=== PATIENT | female | born 1995 | race Two or more races ===

== ENCOUNTER 2019-03-11 13:55 | Emergency (ER) | payer SELFPAY ==
[2019-03-11 14:20] VITALS: BP 105/65; PULSE 105; TEMP 98.5; BMI 27.4
[2019-03-11] MEDS ORDERED: HYDROCORTISONE 1% TOPICAL CREAM 30 GM TUBE TP ONE (15:18)
[2019-03-11] MEDS ORDERED: diphenhydrAMINE HCL 25 MG CAPSULE (FP) PO ONE ×2 (15:18→15:27)
[2019-03-11] MEDS ORDERED: diazePAM 5 MG TABLET PO ONE (15:18)
[2019-03-11] MEDS ORDERED: diazePAM 5 MG TABLET ONE (15:27)
--- NOTE | 2019-03-11 15:33 | PDOC ---
History of Present Illness - General Chief Complaint: Rash Stated Complaint: RASH Time Seen by Provider: 03/11/19 14:41 History Source: Patient Exam Limitations: No Limitations - History of Present Illness Initial Comments: 03/11/19 15:27 HISTORY OF PRESENT ILLNESS: 23-year-old woman denies medical history presents emergency department for evaluation of 3 weeks of rash and lower back pain for one year. Patient reports she recently moved here from [place] and does not have a primary care doctor. [place] she was undergoing treatment for her back pain with physical therapist and is requesting continuation of care here. Patient also noticed a rash to her trunk which started as a Singler oval patch to the left flank followed by similar-appearing smaller patches around her body. She reports the rash is itchy she's been taking Benadryl with relief of itching. No recent travel or sick contacts. PAST MEDICAL HISTORY: Denies past medical history SURGICAL HISTORY: Denies ALLERGIES: No known drug allergies REVIEW OF SYSTEMS General/Constitutional: Denies fever or chills. Denies weakness, weight change. HEENT: Denies change in vision. Denies ear pain or discharge. Denies sore throat. Cardiovascular: Denies chest pain or shortness of breath. Respiratory: Denies cough, wheezing, or hemoptysis. Gastrointestinal: Denies nausea, vomiting, diarrhea or constipation. Denies rectal bleeding. Genitourinary: Denies dysuria, frequency, or change in urination. Musculoskeletal: see HPI Skin and breasts: see HPI Neurologic: Denies headache, vertigo, loss of consciousness, or loss of sensation. Psychiatric: Denies depression or anxiety. Endocrine: Denies increased thirst. Denies abnormal weight change. Hematologic/Lymphatic: Denies anemia, easy bleeding, or history of blood clots. Allergic/Immunologic: Denies hives or skin allergy. Denies latex allergy. PHYSICAL EXAM General Appearance: Well-appearing, appropriately dressed. No apparent distress , no intoxication. HEENT: EOMI, PERRLA, normal ENT inspection, normal voice, TMs normal, pharynx normal. No conjunctival pallor. No photophobia, scleral icterus. Neck: Supple. Trachea midline. No tenderness, rigidity, carotid bruit, stridor , lymphadenopathy, or thyromegaly. Respiratory/Chest: Lungs CTAB. No shortness of breath, chest tenderness, respiratory distress, accessory muscle use. No crackles, rales, rhonchi, stridor , wheezing, dullness Cardiovascular: RRR. S1, S2. No JVD, murmur, bradycardia, tachycardia. Vascular Pulses: Dorsalis-Pedis (R): 2+, Dorsalis-Pedis (L): 2+ Gastrointestinal/Abdominal: Normal bowel sounds. Abdomen soft, non-distended. No tenderness or rebound tenderness. No organomegaly, pulsatile mass, guarding, hernia, hepatomegaly, splenomegaly. Lymphatic: No adenopathy, tenderness. Musculoskeletal/Extremities: Normal inspection. FROM of all extremities, normal capillary refill. Pelvis Stable. No CVA tenderness. No tenderness to extremities, pedal edema, swelling, erythema or deformity. Integumentary: Raised patchy scaly rash present to chest, back and abdomen. Rash started with a single oval patch in the left flank is currently still presents and is larger than the other lesions. Dizziness the large patches consistent with a herald patch. Neurologic: parts sales advisor II-XII intact. Fully oriented, alert. Appropriate mood/affect. Motor strength 5/5. No appreciable EOM palsy, facial droop or sensory deficit. 03/11/19 15:52 Past History - Past Medical History Allergies/Adverse Reactions: Allergies Allergy/AdvReac Type Severity Reaction Status Date / Time ibuprofen Allergy Verified 03/11/19 14:21 tramadol Allergy Verified 03/11/19 14:21 Home Medications: Ambulatory Orders NK [No Known Home Medication] 03/11/19 COPD: No Other medical history: ITP - Suicide/Smoking/Psychosocial Hx Smoking History: Never smoked Have you smoked in the past 12 months: No Information on smoking cessation initiated: No Hx Alcohol Use: No Drug/Substance Use Hx: No *Physical Exam - Vital Signs Last Vital Signs Temp Pulse Resp BP Pulse Ox 98.5 F 105 H 20 105/65 100 03/11/19 14:19 03/11/19 14:19 03/11/19 14:19 03/11/19 14:19 03/11/19 14:19 Medical Decision Making - Medical Decision Making 03/11/19 15:27 A/P: 43-year-old woman with pityriasis rosacea and lower back pain Rash present to trunk for the past 3 weeks started with a large oval patch in the left flank which then progressed to smaller patches on the chest, upper back and lower back. Valium 5 mg now Benadryl 25 mg orally Hydrocortisone cream 2% Discharge home *DC/Admit/Observation/Transfer Diagnosis at time of Disposition: Pityriasis rosea Back pain Qualifiers: Back pain location: low back pain Chronicity: acute Back pain laterality: right Sciatica presence: without sciatica Qualified Code(s): M54.5 - Low back pain - Discharge Dispostion Disposition: HOME Condition at time of disposition: Stable Decision to Admit order: No - Referrals Referrals: Vivi Alejandra MD [Staff Physician] - Giovany Fay MD [Staff Physician] - - Patient Instructions Additional Instructions: Rest. Take Tylenol or Motrin as needed for pain. Follow manufacturers instructions for appropriate dosage. Warm moist heat applied to your back may help alleviate pain. Return to emergency department for discoloration of the foot, numbness or tingling to the foot, worsening pain, or any other concerns. Thank you very much for choosing us to provide your emergent healthcare needs. - Post Discharge Activity
== END 2019-03-11 15:35 | disposition home or self-care (01) ==
LOC: JERFT 13:55
DX: L42 Pityriasis rosea (principal); M54.5 Low back pain
CPT/HCPCS: 99281-25

== ENCOUNTER 2019-05-28 16:26 | Emergency (ER) | payer OTHER ==
[2019-05-28 16:29] VITALS: BP 109/59; PULSE 98; TEMP 98.4; BMI 27.4
[2019-05-28] MEDS ORDERED: LIDOCAINE VISCOUS 2% ORAL/TOP 20 ML UNIT-DOSE CUP ONE (16:40)
--- NOTE | 2019-05-28 16:43 | PDOC ---
History of Present Illness - General Chief Complaint: Toothache Stated Complaint: tooth problem Time Seen by Provider: 05/28/19 16:34 History Source: Patient Past History - Past Medical History Allergies/Adverse Reactions: Allergies Allergy/AdvReac Type Severity Reaction Status Date / Time ibuprofen Allergy Verified 05/28/19 16:33 tramadol Allergy Verified 05/28/19 16:33 Home Medications: Ambulatory Orders Chlorhexidine Gluconate [Peridex -] 15 ml MM BID 3 Days #90 ml 05/28/19 COPD: No - Suicide/Smoking/Psychosocial Hx Smoking History: Never smoked Have you smoked in the past 12 months: No Hx Alcohol Use: No Drug/Substance Use Hx: No *Physical Exam - Vital Signs Last Vital Signs Temp Pulse Resp BP Pulse Ox 98.4 F 98 H 18 109/59 L 100 05/28/19 16:27 05/28/19 16:27 05/28/19 16:27 05/28/19 16:27 05/28/19 16:27 - Physical Exam HEENT: positive: EOMI, Other (left upper molar extraction with stitches, no active bleeding or discharge noted). negative: Excessive drooling Neurologic: positive: post production assistant II-XII NML intact, Fully Oriented, Alert, Normal Mood/ Affect, Motor Strength 5/5 Medical Decision Making - Medical Decision Making 23y/o F s/p tooth extraction today at 7am reports pain to left facial region exam with upper molar extraction with sutures no evidence of facial droop or ear infection no abscess 05/28/19 16:56 pt took 2 extra strength Tylenol 1hr COAL DIGGER *DC/Admit/Observation/Transfer Diagnosis at time of Disposition: Tooth ache - Discharge Dispostion Disposition: HOME Condition at time of disposition: Stable Decision to Admit order: No - Prescriptions Prescriptions: Chlorhexidine Gluconate [Peridex -] 15 ml MM BID 3 Days #90 ml - Referrals - Patient Instructions Printed Discharge Instructions: DI for Dental Pain Additional Instructions: Take Tylenol for pain apply the viscous lidocaine gel given to you every 4hrs prn pain, do not swallow follow up Dentist Return to the ER If worsening symptoms occurs - Post Discharge Activity
== END 2019-05-28 17:11 | disposition home or self-care (01) ==
LOC: JERFT 16:26
DX: K08.89 Other specified disorders of teeth and supporting structures (principal)
CPT/HCPCS: 99282-25

== ENCOUNTER 2019-07-29 23:27 | Emergency (ER) | payer OTHER ==
[2019-07-29 23:53] VITALS: BMI 30.9
[2019-07-30 02:50] LABS: EPI CELLS 6.5 /HPF (0-5/HPF); HYALINE CASTS 4 /lpf (0-8); URINE APPEARANCE Error; URINE BACTERIA 25.4 /hpf (NEGATIVE); URINE BILIRUBIN NEGATIVE (NEGATIVE); URINE COLOR YELLOW; URINE GLUCOSE (UA) NEGATIVE (NEGATIVE); URINE KETONE NEGATIVE (NEGATIVE); URINE LEUK ESTERASE TRACE (NEGATIVE); URINE NITRITE NEGATIVE (NEGATIVE); URINE PROTEIN NEGATIVE (NEGATIVE); URINE RBC 2 /hpf (0-4); URINE WBC 4 /hpf (0-5)
[2019-07-30] MEDS ORDERED: ACETAMINOPHEN 1000 MG/100 ML VIAL (NON FORMULARY) IVPB ONE ×2 (03:18→09:59)
--- NOTE | 2019-07-30 03:22 | PDOC ---
History of Present Illness - General Chief Complaint: Pain Stated Complaint: BACK AND ABD PAIN Time Seen by Provider: 07/30/19 01:46 - History of Present Illness Initial Comments: 07/30/19 03:17 23 yo F with h/o tubal ligation who p/w diffuse lower abdominal pain. Patient reports crampy, unremitting, worsening diffuse lower abdominal pain x 1 week. No identifiable triggers or alleviators. nausea without vomiting. Denies improvement with Prilosec. Denies h/o similar presentation. Patient denies ADKINS, vision change, palpitations, cough, wheezing, orthopena, PND , leg swelling/pain, N/V, F,C, CP, SOB, urinary complaints, hematuria, vaginal discharge/bleeding/itching/burning, BPR, abdominal pain, diarrhea, constipation , lightheadedness, weakness, sensory changes. PMHx: as noted above ROS: as noted SHx: Denies Etoh, IVDA, tobacco use. Sexually active with one partner. Reports intermittent barrier/condom protection. Allergies: Motrin, Tramadol Past History - Past Medical History Allergies/Adverse Reactions: Allergies Allergy/AdvReac Type Severity Reaction Status Date / Time ibuprofen Allergy Verified 07/29/19 23:48 tramadol Allergy Verified 07/29/19 23:48 Home Medications: Ambulatory Orders Chlorhexidine Gluconate [Peridex -] 15 ml MM BID 3 Days #1 bottle 05/28/19 Chlorhexidine Gluconate [Peridex -] 15 ml MM BID 3 Days #90 ml 05/28/19 COPD: No - Suicide/Smoking/Psychosocial Hx Smoking History: Never smoked Have you smoked in the past 12 months: No Information on smoking cessation initiated: No Hx Alcohol Use: No Drug/Substance Use Hx: No Review of Systems - Review of Systems Comments:: 07/30/19 03:24 GENERAL/CONSTITUTIONAL: No fever or chills. No weakness. HEAD, EYES, EARS, NOSE AND THROAT: No change in vision. No ear pain or discharge. No sore throat. CARDIOVASCULAR: No chest pain or shortness of breath RESPIRATORY: No cough, wheezing, or hemoptysis. GASTROINTESTINAL: No nausea, vomiting, diarrhea or constipation. GENITOURINARY: + Lower abdominal pain. No dysuria, frequency, or change in urination. MUSCULOSKELETAL: No joint or muscle swelling or pain. No neck or back pain. SKIN: No rash NEUROLOGIC: No headache, vertigo, loss of consciousness, or change in strength/ sensation. ENDOCRINE: No increased thirst. No abnormal weight change HEMATOLOGIC/LYMPHATIC: No anemia, easy bleeding, or history of blood clots. ALLERGIC/IMMUNOLOGIC: No hives or skin allergy. *Physical Exam - Vital Signs Last Vital Signs Temp Pulse Resp BP Pulse Ox 98.8 F 110 H 17 123/71 100 07/29/19 23:44 07/29/19 23:44 07/29/19 23:44 07/29/19 23:44 07/29/19 23:44 - Physical Exam Comments: 07/30/19 03:25 GENERAL: Awake, alert, and fully oriented, in no acute distress HEAD: No signs of trauma, normocephalic, atraumatic EYES: PERRLA, EOMI, sclera anicteric, conjunctiva clear ENT: Hearing grossly normal, nares patent, oropharynx clear without exudates. Moist mucosa NECK: Normal ROM, supple, no lymphadenopathy, JVD, or masses LUNGS: No distress, speaks full sentences, clear to auscultation bilaterally HEART: Regular rate and rhythm, normal S1 and S2, no murmurs, rubs or gallops, peripheral pulses normal and equal bilaterally. ABDOMEN: + Diffuse lower abdominal ttp. Soft, NDS, normoactive bowel sounds. No guarding, no rebound. No masses. Neg CVA ttp. EXTREMITIES : Normal inspection, Normal range of motion, no edema. No clubbing or cyanosis. NEUROLOGICAL: Cranial nerves II through XII grossly intact. Normal speech, normal gait, no focal sensorimotor deficits SKIN: Warm, Dry, normal turgor, no rashes or lesions noted ED Treatment Course - LABORATORY CBC & Chemistry Diagram: 07/30/19 06:28 07/30/19 09:28 - ADDITIONAL ORDERS Additional order review: Laboratory Results 07/30/19 07/30/19 02:35 02:35 Urine Color Yellow Urine Appearance Error Urine pH 7.0 Ur Specific [place] 1.023 Urine Protein Negative Urine Glucose (UA) Negative Urine Ketones Negative Urine Blood Negative Urine Nitrite Negative Urine Bilirubin Negative Urine Urobilinogen 1.0 Ur Leukocyte Esterase Trace Urine WBC (Auto) 4 Urine RBC (Auto) 2 Urine Casts (Auto) 4 U Epithel Cells (Auto) 6.5 Urine Bacteria (Auto) 25.4 Urine HCG, Qual Negative Medical Decision Making - Medical Decision Making 07/30/19 03:22 23 yo F with h/o tubal ligation who p/w diffuse lower abdominal pain. HR 110, vitals wnl, AF, A&Ox3. Physical exam with diffuse lower abdominal ttp. Will consider cystitis/UTI, nephrolithaisis, colitis, diverticulitis, appendicitis, uterine or ovarian pathology. Will provide oral analgesia, reassess. Ed Course: 07/30/19 03:32 Patient refuses lab/blood draw Patient refuses pelvic exam Patient states that she wants to leave ED before complete medical evaluation 07/30/19 06:31 Patient states that she would like to stay in ED and complete med evaluation 07/30/19 06:32 UA negative CBC, CMP: pending *DC/Admit/Observation/Transfer Diagnosis at time of Disposition: Abdominal pain Qualifiers: Abdominal location: lower abdomen, unspecified Qualified Code(s): R10.30 - Lower abdominal pain, unspecified - Discharge Dispostion Disposition: AGAINST MEDICAL ADVICE Condition at time of disposition: Stable Decision to Admit order: No - Referrals Referrals: Beau Salinas MD [Staff Physician] - Jae Simon MD [Staff Physician] - - Patient Instructions Printed Discharge Instructions: DI for Abdominal Pain-Adult Additional Instructions: You are refusing further medical care and want to go home before labs return, imaging is performed, or without a pelvic exam. Please follow up with the webbing seamer pound net and the GI doctor. Please return to the ED if you have new or worsening symptoms. - Post Discharge Activity
--- NOTE | 2019-07-30 06:14 | PDOC ---
Attending Attestation - Resident Resident Name: Jean Barron - ED Attending Attestation I have performed the following: I have examined & evaluated the patient, The case was reviewed & discussed with the resident, I agree w/resident's findings & plan - HPI HPI: 07/30/19 07:21 Pt comes with bilat low abd pain as well as left sided abd pain. Pt has a hx of ovarian cysts; she moved to [place] in February and she has no MDs Pt has no flank pain. She has no nausea and no vomiting and no dysuria and she is able to eat and she denies constipation. - Physicial Exam PE: 07/30/19 07:23 Agree with resident exam. - Medical Decision Making 07/30/19 07:23 Pt may have ovarian cysts causing torsion and detorsion. CBC normal; UA normal Chem hemolyzed. Pt treated with ofirmev; morphin enad saline ordered. 07/30/19 07:24 She will be signed out to the day team for sono
[2019-07-30] MEDS ORDERED: SODIUM CHLORIDE 1,000 ML IV STA (06:32)
[2019-07-30] MEDS ORDERED: ACETAMINOPHEN INJECTION 100 ML IVPB ONE ×2 (06:33→11:20)
[2019-07-30 06:39] LABS: EOS % 3.1 % (0-4.5); HEMATOCRIT 35.9 % (32.4-45.2); HEMOGLOBIN 11.9 GM/dL (10.7-15.3); LYMPH % 50.7 % (8-40); MCH 27.1 pg (25.7-33.7); MCHC 33.2 g/dl (32.0-36.0); MEAN CELL VOLUME 81.6 fl (80-96); MEAN PLT VOLUME 7.3 fl (7.5-11.1); MONO % 8.8 % (3.8-10.2); NEUT % 36.4 % (42.8-82.8); PLATELET COUNT 315 K/MM3 (134-434); RDW 16.7 % (11.6-15.6); WHITE BLOOD COUNT 8.7 K/mm3 (4.0-10.0)
[2019-07-30] MEDS ORDERED: morphine CARPU-JECT 2 MG/1 ML DISP.SYRIN IVPUSH ONE (07:08)
[2019-07-30] MEDS ORDERED: MORPHINE SULFATE 2 MG/ML VIAL ONE (07:29)
--- NOTE | 2019-07-30 07:33 | PDOC ---
*Physical Exam - Vital Signs Last Vital Signs Temp Pulse Resp BP Pulse Ox 98.8 F 110 H 17 123/71 100 07/29/19 23:44 07/29/19 23:44 07/29/19 23:44 07/29/19 23:44 07/29/19 23:44 ED Treatment Course - LABORATORY CBC & Chemistry Diagram: 07/30/19 06:28 07/30/19 09:28 - ADDITIONAL ORDERS Additional order review: Laboratory Results 07/30/19 07/30/19 07/30/19 06:28 02:35 02:35 Sodium Cancelled Potassium Cancelled Chloride Cancelled Carbon Dioxide Cancelled Anion Gap Cancelled BUN Cancelled Creatinine Cancelled Est GFR (CKD-EPI)AfAm Cancelled Est GFR (CKD-EPI)NonAf Cancelled Random Glucose Cancelled Calcium Cancelled Total Bilirubin Cancelled AST Cancelled ALT Cancelled Alkaline Phosphatase Cancelled Total Protein Cancelled Albumin Cancelled Urine Color Yellow Urine Appearance Error Urine pH 7.0 Ur Specific [place] 1.023 Urine Protein Negative Urine Glucose (UA) Negative Urine Ketones Negative Urine Blood Negative Urine Nitrite Negative Urine Bilirubin Negative Urine Urobilinogen 1.0 Ur Leukocyte Esterase Trace Urine WBC (Auto) 4 Urine RBC (Auto) 2 Urine Casts (Auto) 4 U Epithel Cells (Auto) 6.5 Urine Bacteria (Auto) 25.4 Urine HCG, Qual Negative 07/30/19 06:28 RBC 4.40 MCV 81.6 MCHC 33.2 RDW 16.7 H MPV 7.3 L Neutrophils % 36.4 L Lymphocytes % 50.7 H Monocytes % 8.8 Eosinophils % 3.1 Basophils % 1.0 - Medications Given in the ED: ED Medications Discontinued Medications Generic Name Dose Route Start Last Admin Trade Name Gregq PRN Reason Stop Dose Admin Acetaminophen 1,000 mg 07/30/19 03:18 07/30/19 06:38 Ofirmev Injection - IVPB 07/30/19 03:19 1,000 mg ONCE ONE Administration Medical Decision Making - Medical Decision Making 07/30/19 07:[address] Barron 23 yo F with h/o tubal ligation who p/w diffuse lower abdominal pain. Initial vitals included HR 110, AF, A&Ox3. Physical exam with diffuse lower abdominal ttp. UA and CBC unremarkable -Will followup CMP and transvaginal US 07/30/19 10:23 US negative CMP unremarkable with nrml Cr will proceed to CT abd/pel with con given persistent tenderness 07/30/19 10:58 Patient refusing imaging and wants to leave AMA Discussed with patient risks of leaving AMA before workup complete and patient signed form Recommended further followup with PCP as well as GI/Ob for evaluation *DC/Admit/Observation/Transfer Diagnosis at time of Disposition: Abdominal pain Qualifiers: Abdominal location: lower abdomen, unspecified Qualified Code(s): R10.30 - Lower abdominal pain, unspecified - Discharge Dispostion Disposition: AGAINST MEDICAL ADVICE Condition at time of disposition: Stable Decision to Admit order: No - Referrals Referrals: Beau Salinas MD [Staff Physician] - Jae Simon MD [Staff Physician] - - Patient Instructions Printed Discharge Instructions: DI for Abdominal Pain-Adult Additional Instructions: You are refusing further medical care and want to go home before labs return, imaging is performed, or without a pelvic exam. Please follow up with the steam tender and the GI doctor. Please return to the ED if you have new or worsening symptoms. - Post Discharge Activity
--- NOTE | 2019-07-30 07:46 | PDOC ---
*Physical Exam - Vital Signs Last Vital Signs Temp Pulse Resp BP Pulse Ox 98.8 F 110 H 17 123/71 100 07/29/19 23:44 07/29/19 23:44 07/29/19 23:44 07/29/19 23:44 07/29/19 23:44 - Physical Exam Comments: 07/30/19 10:27 gen: aaox3, uncomfortable, laying in a position heart: +s1s2 reg lungs: cta b/l abd: soft, suprapubic ttp, RLQ ttp, R cva ttp ext: no c/c/e ED Treatment Course - LABORATORY CBC & Chemistry Diagram: 07/30/19 06:28 07/30/19 09:28 - ADDITIONAL ORDERS Additional order review: Laboratory Results 07/30/19 07/30/19 07/30/19 06:28 02:35 02:35 Sodium Cancelled Potassium Cancelled Chloride Cancelled Carbon Dioxide Cancelled Anion Gap Cancelled BUN Cancelled Creatinine Cancelled Est GFR (CKD-EPI)AfAm Cancelled Est GFR (CKD-EPI)NonAf Cancelled Random Glucose Cancelled Calcium Cancelled Total Bilirubin Cancelled AST Cancelled ALT Cancelled Alkaline Phosphatase Cancelled Total Protein Cancelled Albumin Cancelled Urine Color Yellow Urine Appearance Error Urine pH 7.0 Ur Specific [place] 1.023 Urine Protein Negative Urine Glucose (UA) Negative Urine Ketones Negative Urine Blood Negative Urine Nitrite Negative Urine Bilirubin Negative Urine Urobilinogen 1.0 Ur Leukocyte Esterase Trace Urine WBC (Auto) 4 Urine RBC (Auto) 2 Urine Casts (Auto) 4 U Epithel Cells (Auto) 6.5 Urine Bacteria (Auto) 25.4 Urine HCG, Qual Negative 07/30/19 06:28 RBC 4.40 MCV 81.6 MCHC 33.2 RDW 16.7 H MPV 7.3 L Neutrophils % 36.4 L Lymphocytes % 50.7 H Monocytes % 8.8 Eosinophils % 3.1 Basophils % 1.0 - Medications Given in the ED: ED Medications Discontinued Medications Generic Name Dose Route Start Last Admin Trade Name Freq PRN Reason Stop Dose Admin Acetaminophen 1,000 mg 07/30/19 03:18 07/30/19 06:38 Ofirmev Injection - IVPB 07/30/19 03:19 1,000 mg ONCE ONE Administration Sodium Chloride 1,000 mls @ 1,000 mls/hr 07/30/19 06:32 07/30/19 07:07 Normal Saline - IV 07/30/19 07:31 1,000 mls/hr ASDIR STA Administration Morphine Sulfate 2 mg 07/30/19 07:08 07/30/19 07:37 Morphine Injection - IVPUSH 07/30/19 07:09 2 mg ONCE ONE Administration Medical Decision Making - Medical Decision Making 07/30/19 07:46 a/p: 23yo female with lower abd pain signed out from the prior team pending tvus -pt currently in ultrasound 07/30/19 10:29 pt states still with lower abd pain ultrasound does not show acute pelvic pathology -r cva ttp and rlq pain, will send for ct [facility] for appy -will give tylenol for pain -will monitor and reassess 07/30/19 10:30 ua neg lipase is low 07/30/19 10:30 pt refused pelvic exam 07/30/19 11:[address] and refusing pelvic pt requesting to sign out ama states pain has been present since december pt signed ama paperwork resident discussed in detail signing out ama Note: The patient insists on leaving the emergency dept and is signing out against medical advice. The patient understands the risks and complications that may result from the refusal of medical care and admission which includes and permanent disability. The patient has the mental capacity of understanding the risks of refusing care and is capable of making an informed decision. The patient was instructed to return to the emergency department should she change her mind regarding medical care or should her condition worsen. The patient signed the Against Medical Advice form. *DC/Admit/Observation/Transfer Diagnosis at time of Disposition: Abdominal pain Qualifiers: Abdominal location: lower abdomen, unspecified Qualified Code(s): R10.30 - Lower abdominal pain, unspecified - Discharge Dispostion Disposition: AGAINST MEDICAL ADVICE Condition at time of disposition: Stable - Referrals Referrals: Beau Salinas MD [Staff Physician] - Jae Simon MD [Staff Physician] - - Patient Instructions Printed Discharge Instructions: DI for Abdominal Pain-Adult Additional Instructions: You are refusing further medical care and want to go home before labs return, imaging is performed, or without a pelvic exam. Please follow up with the group work program aide and the GI doctor. Please return to the ED if you have new or worsening symptoms. - Post Discharge Activity
[2019-07-30 09:31] VITALS: BP 99/67; PULSE 83; TEMP 98.4
[2019-07-30] MEDS ORDERED: SODIUM CHLORIDE 0.9% 1000 ML INFUS.BAG IV ONE (10:00)
[2019-07-30 10:20] LABS: ALBUMIN 3.9 g/dl (3.4-5.0); BILIRUBIN,TOTAL 0.7 mg/dL (0.2-1); BLOOD UREA NITROGEN 12.5 mg/dL (7-18); CREATININE 0.8 mg/dL (0.55-1.3); TOT PROT 7.4 g/dl (6.4-8.2)
== END 2019-07-30 11:22 | disposition left against medical advice (07) ==
LOC: JER 23:27
PROC: 3E0337Z Introduction of Electrolytic and Water Balance Substance into Peripheral Vein, Percutaneous Approach (ICD-10-PCS; principal; 2019-07-29)
PROC: 3E033NZ Introduction of Analgesics, Hypnotics, Sedatives into Peripheral Vein, Percutaneous Approach (ICD-10-PCS; 2019-07-29)
DX: R10.30 Lower abdominal pain, unspecified (principal); Z87.42 Personal history of other diseases of the female genital tract
CPT/HCPCS: 36415; 76830-TC; 80053; 81003; 83690; 84703; 85025; 87086; 96361; 96374; 99283-25; J0131; J7030

== ENCOUNTER 2019-09-19 11:05 | Emergency (ER) | payer OTHER ==
[2019-09-19 11:18] VITALS: BP 129/77; PULSE 78; TEMP 98.4; BMI 30.9
--- NOTE | 2019-09-19 12:05 | PDOC ---
History of Present Illness - General Chief Complaint: Injury Stated Complaint: FALL/RT HAND SWOLLEN Time Seen by Provider: 09/19/19 11:27 - History of Present Illness Initial Comments: 09/19/19 12:02 23-year-old female presents for evaluation of right hand pain after trip and fall up the steps. She did not hit her head. She points to the ulnar aspect of the right hand and wrist as the area for discomfort. Past History - Past Medical History Allergies/Adverse Reactions: Allergies Allergy/AdvReac Type Severity Reaction Status Date / Time ibuprofen Allergy Verified 07/29/19 23:48 tramadol Allergy Verified 07/29/19 23:48 Home Medications: Ambulatory Orders Chlorhexidine Gluconate [Peridex -] 15 ml MM BID 3 Days #1 bottle 05/28/19 Chlorhexidine Gluconate [Peridex -] 15 ml MM BID 3 Days #90 ml 05/28/19 COPD: No - Immunization History Immunization Up to Date: No - Psycho Social/Smoking Cessation Hx Smoking History: Never smoked Have you smoked in the past 12 months: No Information on smoking cessation initiated: No Hx Alcohol Use: No Drug/Substance Use Hx: No Review of Systems - Review of Systems Musculoskeletal: Yes: See HPI, Joint Pain *Physical Exam - Vital Signs Last Vital Signs Temp Pulse Resp BP Pulse Ox 98.4 F 78 18 129/77 99 09/19/19 11:15 09/19/19 11:15 09/19/19 11:15 09/19/19 11:15 09/19/19 11:15 - Physical Exam Comments: 09/19/19 12:02 Right hand and wrist skin color temperature normal. Full range of motion of the elbow wrist and forearm in all planes. Tenderness at the ulnar aspect of the carpus. Tenderness about the fifth MCP J FDS and FDP work independently no gross sensorimotor deficits neurovascularly intact. ED Treatment Course - RADIOLOGY Radiology Studies Ordered: Category Date Time Status WRIST W/HAND-RIGHT* [RAD] Stat Radiology 09/19/19 11:45 Taken Medical Decision Making - Medical Decision Making 09/19/19 12:03 X-ray showed no evidence of fracture trauma or destructive process. This is a right wrist sprain. Follow-up with Ortho cock-up wrist splint for comfort Tylenol for pain Discharge - Discharge Information Problems reviewed: Yes Clinical Impression/Diagnosis: Sprain of wrist, right Condition: Stable Disposition: HOME - Admission No - Follow up/Referral Referrals: Harpreet Orosco DO [Staff Physician] - - Patient Discharge Instructions Additional Instructions: Tylenol as directed for pain. Return to the emergency room for worsening symptoms. Please wear the wrist splint for comfort. Follow-up with orthopedics in 1 to 2 days without fail for further evaluation and treatment options. - Post Discharge Activity
== END 2019-09-19 12:14 | disposition home or self-care (01) ==
LOC: JERFT 11:05
PROC: 2W3CX1Z Immobilization of Right Lower Arm using Splint (ICD-10-PCS; principal; 2019-09-19)
DX: S63.501A Unspecified sprain of right wrist, initial encounter (principal); W10.8XXA Fall (on) (from) other stairs and steps, initial encounter; Y93.89 Activity, other specified; Y92.414 Local residential or business street as the place of occurrence of the external cause; Y99.8 Other external cause status
CPT/HCPCS: 29126; 73110-TC-RT-FY; 73130-TC-RT-FY; 99281-25